=== PATIENT | male | born 1965 | race Caucasian/White ===

== ENCOUNTER 2017-03-13 18:55 | Observation (INO) | payer BC ==
[~2017-03-13] VITALS: Ht 182.9 cm; Wt 121.2 kg
--- NOTE | ~2017-03-13 | ECH ---
Transthoracic Echocardiography Report (TTE) Demographics Patient Name YONATAN FERNANDEZ Date of Study 03/14/2017 Patient Number [id number] Visit Number [id number] Date of 1965 Room Number 432 Accession Number [id number] Gender Male Age 52 year(s) Referring Teresa Hernández Roll Former Jaylin Barnett Physician RDCS Physician Interpreting Sendy Gonzalez MD Middleware Developer Physician Supervising Ordering Physician Teresa Hernández MD/MLP Nurse Stress Central Supply Clerk Conclusions Summary Technically adequate exam. The estimated left ventricular ejection fraction is 60%. Trivial tricuspid regurgitation by color Doppler. Insufficient jet to calculate pulmonary pressures. No significant valvular abnormalities. Procedure Type of Study TTE procedure:Echo Complete SF. Procedure Date Date: 03/14/2017 Start: 08:31 Technical Quality: Adequate visualization Indications:Syncope and Hypertension. Additional Indications:Elevated D dimer Appropriate Use Criteria: 9 Height: 72 inches Weight: 267 pounds BSA: 2.41 m Rhythm: Sinus bradycardia HR: 51 bpm BP: 122/65 mmHg M-Mode/2D Measurements LV Diastolic Dimension: 5.3 cm LV Systolic Dimension: 3.2 cm LV Septum Diastolic: 1.03 cm LV PW Diastolic: 0.98 cm AO Root Dimension: 3.01 cm Cardiac Output: 3.56 l/min LA Dimension: 3.75 cm Cardiac Index: 1.48 l/min*m RV Diastolic Dimension: 3.99 cm LA volume index: 24 ml/m LVOT: 2.26 cm LVOT VTI: 17.42 cm RV Base: 3.9 cm LV Stroke volume: 69.84 ml RV Mid: 2.5 cm LV Stroke volume index: 28.98 ml/m TAPSE: 2.5 cm TDI-S': 13 cm/s Doppler Measurements AV Peak Velocity: 1.3 m/s MV Peak E-Wave: 0.79 m/s AV Peak Gradient: 6.76 mmHg MV Peak A-Wave: 0.45 m/s AV Mean Gradient: 3.6 mmHg MV E/A Ratio: 1.78 LVOT Peak Velocity: 0.85 m/s MV P1/2t: 66.1 msec AV Area (Continuity):2.97 cm MV Deceleration Time: 215.5 msec MV Area (PHT): 3.33 cm PV Peak Velocity: 0.88 m/s E' Septal Velocity: 0.11 m/s PV Peak Gradient: 3.12 mmHg E' Lateral Velocity: 0.13 m/s A' Septal Velocity: 0.1 m/s A' Lateral Velocity: 0.1 m/s RA Area: 15.21 cm Findings Left Ventricle Normal left ventricle size and function. Diastolic assessment reveals normal relaxation. Right Ventricle Normal right ventricle structure and function. Left Atrium Normal left atrial size. Right Atrium Normal right atrial size. Mitral Valve Normal mitral valve structure and function. Trivial mitral regurgitation by color Doppler. Aortic Valve The aortic valve was not well imaged. Tricuspid Valve Normal tricuspid valve structure and function. Trivial tricuspid regurgitation by color Doppler. Insufficient jet to calculate pulmonary pressures. Pulmonic Valve The pulmonic valve is not well visualized. Pericardial Effusion No evidence of pericardial effusion. Miscellaneous Visualized portions of the aortic root and ascending aorta appear normal in size. Pleural Effusion No evidence of pleural effusion. Signature
[~2017-03-13 18:55] MED LIST: ASA CHILDREN'S81 MG PO; CELECOXIB200 MG PO; CYMBALTA60 MG PO; DULCOLAX-DPS10 MG PR; DULCOLAX-DPS5 MG PO; LISINOPRIL-HCT1 EAC1 PO; MEDROL DPS4 MG PO; MIRALAX PACKET17 GM PO; NABUMETONE500 MG PO; NORVASC5 MG PO; OMEGA-3 DPS1000 MG PO; OXY IR DPS5 MG PO; PERCOCET 10 DPS1 TAB PO; PERCOCET 7.5-31 EACH PO; SENOKOT S1 TAB PO; SURFAK DPS240 MG PO; TUMS DPS500 MG PO; TYLENOL DPS325 MG PO; TYLENOL325 MG PO; ULTRAM DPS50 MG PO; VALIUM-DPS10 MG PO; VALIUM-DPS5 MG PO; VITAMIN B COMP1 EACH PO; XARELTO10 MG PO; ZANAFLEX4 MG PO; ZEBETA5 MG PO
[2017-03-15] MEDS ORDERED: ZANAFLEX4 MG PO (18:09)
[2017-03-15] MEDS ORDERED: PERCOCET 7.5 DP1 TAB PO (18:09)
[2017-03-15] MEDS ORDERED: CELEBREX200 MG PO (18:10)
[2017-03-15] MEDS ORDERED: OMEGA-3 DPS1000 MG PO (18:10)
[2017-03-15] MEDS ORDERED: ASA CHILDREN'S81 MG PO (18:10)
[2017-03-15] MEDS ORDERED: CYMBALTA60 MG PO (18:10)
[2017-03-15] MEDS ORDERED: B COMPLEX1 EACH PO (18:11)
--- NOTE | 2017-03-26 15:54 | ER ---
ADMIT: 03/13/2017 RM/LOC: 432 [facility] MR#: [id number] [address] [address] YONATAN FERNANDEZ [address] [place] [address] Emergency Room Report SEX: M AGE: 52 : 1965 DATE: 03/13/2017 A 52-year-old who had 2 episodes of passing out today. Apparently, he was walking in his garage when he collapsed suddenly. There was no premonition or warning sustaining loss of consciousness, however, did not lose control of his bowel or bladder. His helped him up. He took a couple of steps and then passed out again. Again, no premonition. Denied any other complaints. His past history is of hypertension and right total knee. REVIEW OF SYSTEMS: Essentially negative. PHYSICAL EXAMINATION: GENERAL: Revealed a 52-year-old gentleman in no acute distress. HEENT: Normocephalic and atraumatic. Pupils are equal and reactive. NECK: Supple. Trachea is midline. RESPIRATORY: Clear. CARDIOVASCULAR: Regular rate and rhythm. No murmurs, rubs, or gallops. ABDOMEN: Obese, soft, nontender. EXTREMITIES: Significant for right shoulder pain and right elbow pain to palpation. NEURO: Cranial nerves: He does have a chronic right facial droop. Motor strength is symmetric on both sides. EMERGENCY ROOM COURSE: Cardiac workup was unremarkable. CT scan of the head was likewise unremarkable. Shoulder x-ray was negative. Elbow x-ray was negative. PERTINENT LAB: Potassium of 3.2, which was supplemented in the Emergency Department with 40 mEq of potassium. He was subsequently admitted to observation with diagnosis of syncope. Tray Thomas MD/ kimber JOB #: [id number] CC: Betty Moore MD, Attending Physician Betty Moore MD, Family Physician
--- NOTE | 2017-03-27 07:37 | HP ---
ADMIT: 03/13/2017 RM/LOC: 432 [facility] MR#: [id number] [address] [address] YONATAN FERNANDEZ [address] [place] [address] History and Physical SEX: M AGE: 52 : 1965 DATE OF SERVICE: 03/13/2017 CHIEF COMPLAINT: Syncope. HISTORY OF PRESENT ILLNESS: The patient is a 52-year-old, white male, who has had a couple of episodes of syncope this evening. He was walking a friend out through his garage this evening when he suddenly just went down. His was home as well and came out and he was lying on his right side. The friend witnessed the event and did not note any unusual activity before or after this event. He came to and laid there for a little bit, and they tried to sit him up, and he had another syncopal event, so they ended up bringing him into the emergency room. He had no presyncopal symptoms. Had been feeling fine through the day and had been home and in the air conditioning all day. He feels like he is drinking a fair amount of fluids. Does take blood pressure medicines for his hypertension, but no recent changes in that, and he had taken all of his medications as scheduled earlier in the day. He takes Percocet for pain control, but had not taken any more than normal that day. PAST MEDICAL HISTORY: The patient does have hypertension, obesity, lumbar spinal stenosis status post spinal surgery, osteoarthritis of the knees status post right total knee arthroplasty. Left rotator cuff repair, right ankle fracture surgery, and bilateral carpal tunnel repair. MEDICATIONS: 1. Tizanidine 4 mg q.6 hours p.r.n. 2. Percocet 7.5/325 one to two every 6 hours as needed. 3. Bisoprolol 5 mg daily. 4. Lisinopril/hydrochlorothiazide 20/12.5 one daily. 5. Duloxetine 60 mg daily. 6. Fish oil 1000 mg daily. 7. Celecoxib 200 mg daily. 8. Aspirin 81 mg daily. 9. Multivitamin daily. ALLERGIES: NO KNOWN DRUG ALLERGIES. SOCIAL HISTORY: The patient is . He has been on disability for a while due to back pain, but had gone back to work about a month ago and had to stop due to worsening back pain. He is a former smoker. No significant alcohol use and no drug use. FAMILY HISTORY: Heart disease, cancer, and hypertension run in the family. REVIEW OF SYSTEMS: CONSTITUTIONAL: No fevers or chills or generalized weakness. HEENT: No headaches or vision changes. Has had mild congestion and drainage, but no sore throat. CARDIAC: No chest pain or palpitations and had not had any presyncopal episodes prior to the onset of this this evening and no prior syncope. ADMIT: 03/13/2017 RM/LOC: 432 [facility] MR#: [id number] [address] [place] [id number] [address] History and Physical SEX: M AGE: 52 : 1965 RESPIRATORY: No shortness of breath or cough. GASTROINTESTINAL: No abdominal pain, nausea, or vomiting, and he has no troubles with constipation. No diarrhea or blood in the stools. MUSCULOSKELETAL: Has chronic back pain and knee pain. Worse on the right side and does radiate down into his right leg occasionally. Much better since surgery. SKIN: No rashes. ENDOCRINE: No prior diabetes or thyroid issues. PSYCH: Does have depression due to his chronic pain issues mainly, has been fairly well controlled with the Cymbalta. Rest review of systems is negative. PHYSICAL EXAMINATION: GENERAL: The patient is alert and in no distress. VITAL SIGNS: Afebrile, blood pressure is 123/62, pulse 60, respirations 16, and sats are 96% on room air. He was orthostatic in the ambulance with systolic dropping to 70s when he would stand up. Weight is 267 pounds. HEENT: Head is atraumatic and normocephalic. Sclerae are clear. Pupils are round and reactive. Nares are patent. Oropharynx looks moist without lesions. NECK: Supple with no lymphadenopathy. HEART: Regular without murmurs. LUNGS: Sound clear bilaterally. ABDOMEN: Soft, nondistended, nontender with good bowel sounds. No organomegaly or masses are noted. EXTREMITIES: No edema. He has postop changes in his right knee and low back. No calf edema, and he has a negative Homans sign. 2+ dorsalis pedis pulses. SKIN: Normal with no rashes. Just mild abrasion on the right elbow. No focal neurologic deficits are noted. PSYCH: Normal affect and mood considering his situation. LABORATORY DATA: Hemoglobin is 13.7, white count 8.5, and platelets 291. BUN 11, creatinine 1.0, and electrolytes are normal. Initial troponin was normal. Shoulder x-ray showed no fracture neither did his elbow x-ray. Head CT was negative. Calcium was slightly low at 3.2 on admission. ASSESSMENT: ADMIT: 03/13/2017 RM/LOC: 432 [facility] MR#: [id number] [facility] [address] [address] YONATAN FERNANDEZ [address] [place] [address] History and Physical SEX: M AGE: 52 : 1965 1. Syncope. 2. Orthostatic hypotension. 3. Hypertension. 4. Obesity. 5. Chronic low back pain and osteoarthritis. 6. Chronic opioid use. PLAN: We will admit and watch on telemetry. We will get an echo and carotid Dopplers. We will rehydrate overnight and hold his blood pressure medications. We will treat pain with Percocet and tizanidine as he uses at home. We will check a D-dimer and if elevated, check a CTA of the chest as well to rule out PE. Make any changes as needed based on his hospital course. Betty Moore MD/ kimber JOB #: [id number] CC: Betty Moore, Attending Physician Betty Moore, Family Physician
== END 2017-03-14 18:55 | disposition home or self-care (01) ==
LOC: ER 18:55 → 4PCU 20:20
PROVIDERS: ADMIT Family Medicine
DX: R55 Syncope and collapse (principal); I95.1 Orthostatic hypotension; I10 Essential (primary) hypertension; E66.9 Obesity, unspecified; F11.90 Opioid use, unspecified, uncomplicated; G89.29 Other chronic pain; M54.5 Low back pain; Z96.651 Presence of right artificial knee joint; Z98.890 Other specified postprocedural states; Z79.82 Long term (current) use of aspirin; Z79.899 Other long term (current) drug therapy